=== PATIENT | female | born 1945 | race Caucasian/White ===

== ENCOUNTER → 2018-10-05 13:20 | Outpatient (CLI) | payer MEDICARE, SELFPAY ==
--- NOTE | 2018-10-05 13:30 | CT_ITS ---
CT abdomen pelvis wo con CLINICAL INDICATION: Right flank pain, history of renal stones, prior left nephrectomy ITS.REASON: kidney stones ORDERING PHYSICIAN: Erich Wilde MD PATIENT AGE: 73 years COMPARISON: 03/13/2015 TECHNIQUE: Axial images obtained with sagittal and coronal reformats. All CT scans at the facility use one or more dose reduction, viz: automated exposure control, ma/kV adjustment per patient size (including targeted exams where dose is matched to indication, i.e. head), or iterative reconstruction technique. PROCEDURE: Oral Contrast: None IV Contrast: None . FINDINGS: There are coronary artery calcifications. Lung bases are clear. Prior cholecystectomy. The liver, spleen, adrenal glands, and pancreas have an unremarkable unenhanced appearance. There has been a prior left nephrectomy. There is a hyperdense nodule along the posterior aspect of the right kidney which measures 14 x 9 mm not significant change. Nonobstructing punctate calculi are present in the lower pole the right kidney measuring up to 3 mm. No hydronephrosis. No ureteral calculi. No bladder calculi. No intestinal obstruction or free air. No evidence of appendicitis or diverticulitis. A moderate amount of retained colonic feces. There is diverticulosis of the sigmoid colon. Prior hysterectomy. Postsurgical changes lumbar spine. IMPRESSION: 1. Right nephrolithiasis. No ureteral calculi. 2. Stable hyperdense cyst of the upper pole the right kidney. 3. Prior left nephrectomy. 4. Other nonacute findings as described above
== END ==
PROVIDERS: PCP Family Medicine; Visit Provider Urology
DX: N20.0 Calculus of kidney (principal); R10.9 Unspecified abdominal pain
CPT/HCPCS: 74176

== ENCOUNTER → 2020-03-20 15:26 | Outpatient (CLI) | payer MEDICARE, SELFPAY ==
--- NOTE | 2020-03-20 16:17 | ECG_ITS ---
APPROVED REPORT Exam: Resting ECG HR:61 bpm ECG Measurements Heart Rate 61 AXES IN 168 P 42 QRSd 72 QRS 17 QT 396 T 40 QTc 398 <Conclusion> Normal sinus rhythm Normal ECG Electronically signed by : Elian Narvaez, 03/21/2020 07:17:04
== END ==
PROVIDERS: PCP Family Medicine; Visit Provider Family Medicine
DX: Z01.818 Encounter for other preprocedural examination (principal)
CPT/HCPCS: 93005

== ENCOUNTER → 2020-12-24 12:50 | Outpatient (CLI) | payer MEDICARE, SELFPAY ==
--- NOTE | 2020-12-24 12:54 | US_ITS ---
PROCEDURE: US THYROID CLINICAL INDICATION: THYROMEGALY COMPARISON: No exams were available for comparison FINDINGS: Right lobe: 3.9 x 1 x 0.8 centimeters Left lobe: 2.7 x 0.8 x 1.1 centimeters Isthmus: 0.2 centimeters Additional findings: The thyroid gland is normal in size. Heterogeneous echotexture of the thyroid gland is noted. Hypoechoic nodules are noted in both lobes of thyroid gland. The nodule on the left measures 1 x 0.5 centimeters with the hypoechogenicity. Well-defined margins are noted. The nodules largest nodule in the right lobe measures 1 x 0.5 centimeters. Vascularity appears within IMPRESSION: Normal limits. Heterogeneous thyroid gland with multiple bilateral thyroid nodules measuring up to 1 centimeter. Follow-up as clinically indicated. Dictated by: Raisa Patrick 12/24/2020 15:45 Raisa Patrick in [facility] 12/24/2020 15:45
== END ==
PROVIDERS: PCP Family Medicine; Visit Provider Family Medicine
DX: E01.0 Iodine-deficiency related diffuse (endemic) goiter (principal)
CPT/HCPCS: 76536

== ENCOUNTER → 2021-11-30 11:18 | Outpatient (CLI) | payer MEDICARE, SELFPAY ==
--- NOTE | 2021-11-30 11:31 | XR_ITS ---
PROCEDURE INFORMATION: Exam: XR Chest Exam date and time: 11/30/2021 11:32 AM Age: 76 years old Clinical indication: Cough and shortness of breath; Patient HX: Cough, SOA; Additional info: Bronchitis TECHNIQUE: Imaging protocol: XR of the chest. Views: 2 views. COMPARISON: ABDPELWO CT abdomen pelvis wo con 10/05/2018 1:37 PM FINDINGS: Tubes, catheters and devices: Surgical clips, RUQ. Lungs: Mild bibasilar linear atelectasis/fibrosis. No focal consolidation. Pleural spaces: Unremarkable. No pleural effusion. No pneumothorax. Heart/Mediastinum: Heart size considered at the upper limits of normal for size. Bones/joints: Scoliosis and osteoarthritic changes. Partially imaged lumbar arthrodesis. IMPRESSION: No acute process.
== END ==
PROVIDERS: PCP Physician Assistant; Referring Provider Physician Assistant; Visit Provider Physician Assistant
DX: J40 Bronchitis, not specified as acute or chronic (principal)
CPT/HCPCS: 71046

== ENCOUNTER → 2021-12-10 09:53 | Outpatient (CLI) | payer MEDICARE, SELFPAY ==
--- NOTE | 2021-12-10 | CA_ITS ---
APPROVED REPORT EXAM: Comprehensive 2D, Doppler, and color-flow Echocardiogram Human Service Worker: Katlin Green CRT Ht: 5 ft 1 in Wt: 155lbs BSA: 1.69 BP: 137/65 mmHg Indications: Shortness of Breath, Peripheral Edema, smoker 2D Dimensions LVOT 1.72 cm (M/F) 1.5-2.5 LA Volume 30.70 mL LA Volume Index 18.10 mL/m2 (M/F) 16-34 M-Mode Dimensions RVDd 2.58 cm (0.9-2.6) LA Diam 4.09 cm (1.9-4.0) LVDd 3.99 cm (3.5-5.7) Ao Diam 3.87 cm (2.0-3.7) LVDs 2.61 cm (3.5-5.7) IVSd 1.88 cm (0.6-1.1) PWd 0.64 cm (0.6-1.1) EF (Teich) 64.40% FS 34.60% EDV (Teich) 69.60 mL TAPSE 1.61 (<1.7) ESV (Teich) 24.80 mL LV Diastology E Decel Time 183.00 (160-240 msec) E/A Ratio 1.15 MED E' 8.50 (< 7 cm/sec) MED A' 10.80 cm/s E'/MED E' Ratio 7.92 (>14) LAT E' 6.90 (<10 cm/sec) LAT A' 5.60 cm/s E/LAT E' Ratio 9.75 (>14) Aortic Valve AO Peak GR. 5.80 mmHg Mitral Valve MV E Max Vamsi. 67.00 (40-130 cm/s) MV A Velocity 58.00 (40-130 cm/s) E/A Ratio 1.15 MV Decel. Time 183.00 (160-240 ms) MV PHT 54.00 ms Pulmonary Valve PV Peak Velocity 113.00 (50-150 cm/s) Tricuspid Valve TR P. Velocity 345.00 cm/s RAP Estimate 10.00 mmHg RVSP 57.70 mmHg Left Ventricle Left atrium is mildly enlarged, left ventricle is normal size, mild concentric left ventricular hypertrophy, estimated ejection fraction 55% with no regional wall motion abnormality, grade 2 diastolic dysfunction seen without tissue Doppler evidence of raise left atrial pressure. Right Ventricle Right atrium and right ventricle mildly enlarged with normal contractility. Aortic Valve Aortic valve is thickened and calcified without aortic stenosis or aortic insufficiency. Mitral Valve Mitral valve has mitral valve calcification which extends into the posterior mitral leaflet, there is no mitral stenosis, there is moderate mitral regurgitation. Tricuspid Valve Tricuspid valve grossly normal, there is mild tricuspid regurgitation, tricuspid regurgitation jet velocity is inadequate for calculation of the right ventricular systolic pressure. Pulmonic Valve Pulmonic valve is poorly visualized. Great Vessels Aortic root is normal size. Inferior vena cava is poorly visualized. Pericardium No significant pericardial effusion noted. Conclusion 1. Mild biatrial enlargement, normal left ventricular size, mild concentric left ventricular hypertrophy, estimated ejection fraction 55% with no regional wall motion abnormality, grade 2 diastolic dysfunction seen without tissue Doppler evidence of raise left atrial pressure. 2. Mildly enlarged right ventricle with normal contractility. 3. Moderate mitral and mild tricuspid regurgitation. 4. No significant pericardial effusion noted. 5. Inferior vena cava is poorly visualized. Electronically signed by : Emigdio Hopson MD 12/10/2021 20:51:58
== END ==
PROVIDERS: PCP Physician Assistant; Visit Provider Physician Assistant
DX: R06.02 Shortness of breath (principal); R94.31 Abnormal electrocardiogram [ECG] [EKG]
CPT/HCPCS: 93306

== ENCOUNTER → 2021-12-16 15:53 | Outpatient (CLI) | payer MEDICARE, SELFPAY ==
[2021-12-16 17:20] LABS: Alanine Aminotransferase 43 U/L (12-78); Albumin Level 3.8 g/dl (3.5-5.0); Alkaline Phosphatase 56 U/L (38-126); Anion Gap 7.4 mEq/L (5-15); Aspartate Amino Transferase 33 U/L (14-36); Bilirubin,Direct 0.2 mg/dl (0.0-0.4); Bilirubin,Indirect 0.4 mg/dL (0.0-0.9); Bilirubin,Total 0.6 mg/dl (0.2-1.3); Bilirubin,Unconjugated 0.4 mg/dL (0.0-1.1); Blood Urea Nitrogen 25 mg/dl (7-17); Calcium 8.7 mg/dl (8.4-10.2); Carbon Dioxide 38 mmol/L (22.0-30.0); Chloride 96 mmol/L (98-107); Chol/HDL Ratio 1.6 (1-3.5); Cholesterol 133 mg/dl (140-200); Estimated Glomerular Filt Rate 97 ml/min (>60); GFR (African American) 118 ML/MIN (>60); Glucose 125 mg/dl (74-100); HDL Cholesterol 83 mg/dl (40-60); Magnesium 1.6 mg/dl (1.6-2.3); Potassium 3.4 mmoL/L (3.5-5.1); Sodium 138 mmol/L (136-145); Total Protein,Serum 6.1 g/dl (6.3-8.2); Triglycerides 72 mg/dl (30-150); VLDL Cholesterol 14 mg/dL (0-40)
[2021-12-16 17:30] LABS: Direct LDL Cholesterol 42.19 mg/dL (100-129)
[2021-12-16 17:35] LABS: Free T4 (Free Thyroxine) 1.14 ng/dl (0.78-2.19)
[2021-12-16 17:50] LABS: Thyroid Stimulating Hormone 0.62 uIU/mL (0.465-4.68)
[2021-12-16 18:03] LABS: Basophils # 0.1 K/mm3 (0-0.2); Basophils % 0.7 % (0.1-2.0); Eosinophils % 0.1 % (0.1-12.0); Hematocrit 41.9 % (37.0-47.0); Lymphocytes % 7.8 % (10-50); Mean Corpuscular HGB Conc 33.5 g/dL (31.8-35.4); Mean Corpuscular Hemoglobin 33.1 pg (27.0-31.2); Mean Corpuscular Volume 98.9 fl (81-99); Mean Platelet Volume 8.7 fl (7.4-10.4); Monocytes # 0.9 K/mm3 (0.1-1.0); Monocytes % 6.9 % (1.7-9.3); Neutrophils # 11.4 K/mm3 (1.8-7.8); Neutrophils % 84.6 % (37.0-80.0); Platelet Count 225 K/mm3 (142-424); Red Blood Count 4.24 M/mm3 (4.20-5.40); Red Cell Distribution Width 14.7 % (11.5-17.5); White Blood Count 13.4 K/mm3 (4.8-10.8)
== END ==
PROVIDERS: Visit Provider Nurse Practitioner Family
DX: I10 Essential (primary) hypertension (principal); I34.0 Nonrheumatic mitral (valve) insufficiency; I51.89 Other ill-defined heart diseases
CPT/HCPCS: 80048; 80061; 80076; 83735; 84439; 84443; 85025

== ENCOUNTER 2021-12-18 13:01 | Inpatient (IN) | payer MEDICARE, SELFPAY ==
--- NOTE | 2021-12-18 13:12 | XR_ITS ---
FINAL REPORT CLINICAL HISTORY: possible pneumonia, shortness of breath COMPARISON: 11/30/2021 FINDINGS: TWO-VIEW CHEST The heart size is normal. The mediastinum is normal. There is worsening right base opacity, may represent atelectasis or pneumonia. There is worsening small right effusion. There is no pneumothorax. IMPRESSION: Worsening atelectasis or pneumonia with worsening right effusion. Reviewed, Interpreted and Dictated by Adan Lopez III, MD Transcribed by Rosa Crump Authenticated by Adan Lopez III, MD on 12/18/2021 04:55:01 PM [facility]
--- NOTE | 2021-12-18 13:31 | HMH.HP ---
*Admission Date: 12/18/21 <Nerissa Rutherford - 12/18/21 13:42> *Chief complaint: shortness of breath, leg edema <Nerissa Rutherford - 12/18/21 13:42> *History of present illness: Ms. Hurtado is a 76-year-old female with a history of hypertension, hyperlipidemia, hypothyroidism, impaired fasting glucose, anxiety and depression, and tobacco use. She has been seen multiple times in the office over the past few weeks. She initially had cough, congestion, and shortness of breath, which had been present for the past few months. She had also had some leg edema that seemed to be getting worse. Her white blood cell count was elevated and she has been treated with 3 different rounds of antibiotics for bronchitis. Her chest x-ray on 11/30/2021 showed no pneumonia. She had an elevated BNP and had an echocardiogram on 12/04/2021 showed grade 2 diastolic dysfunction. She was started on Lasix and spironolactone and continued to have swelling. An appointment was made for her with cardiology and she saw them on 12/16/2021. A stress test was scheduled and labs were done. The patient states the next day she felt so bad she went to the emergency room at [place]. A chest x-ray and an EKG were done. She says she was told she had pneumonia and was given IV Lasix and an IV antibiotic and sent home. Today she has been so weak she has been unable to get out of her chair. Her legs are continuing to swell despite diuretic therapy. She states she is not having significant urinary output. Of note she does only have 1 kidney. She will be admitted for CHF and failure of oral diuretics. Cardiology will be consulted. We will also get a chest x-ray to rule out pneumonia. <Nerissa Rutherford 12/18/21 13:42> [facility] History I have reviewed the patient's past medical history: Yes <Nerissa Rutherford 12/18/21 13:42> Medical History: Reports:: Anxiety, Depression, Hyperlipidemia, Hypertension, Kidney Stones, Migraine <Nerissa Rutherford 12/18/21 13:42> *Have you ever received a pneumonia vaccine?: Yes <Nerissa Rutherford 12/18/21 13:42> *Have you received a flu vaccine this season?: No <Nerissa Rutherford 12/18/21 13:42> Other Medical History: Reports: Anemia, Arthritis, Hypothyroidism, Other <Nerissa Rutherford 12/18/21 13:42> Laterality Cases: Bilateral: Cataract <Nerissa Rutherford 12/18/21 13:42> Other Surgeries: Yes: Cholecystectomy, Colonoscopy, Hysterectomy-Total, Ureter Stent, Other (nephrectomy left, lithotripsy, corneal repair, lithotripsy) <Nerissa Rutherford 12/18/21 13:42> Amputation: No <Nerissa Rutherford 12/18/21 13:42> - *Social History Smoking Status: Current every day smoker <Nerissa Rutherford 12/18/21 13:42> Tobacco Type: cigarettes <Nerissa Rutherford 12/18/21 13:42> # Packs/Day (cigarettes): 2 <Nerissa Rutherford 12/18/21 13:42> #Yrs smoked (if former smoker): 50 <Nerissa Rutherford 12/18/21 13:42> Alcohol Intake: never <Nerissa Rutherford 12/18/21 13:42> *Occupational Status:: employed <Nerissa Rutherford 12/18/21 13:42> *Travel in the last 8 weeks: None <Nerissa Rutherford 12/18/21 13:42> Family Hx:: Hypertension, Kidney Disease <Nerissa Rutherford 12/18/21 13:42> Review of Systems - Constitutional Reports fatigue, Reports weakness, Reports weight gain, Denies fever(s) <Nerissa Rutherford 12/18/21 13:42> - Eyes Denies blurry vision, Denies double vision <Nerissa Rutherford 12/18/21 13:42> - ENT Reports nasal congestion, Denies sore throat <Nerissa Rutherford 12/18/21 13:42> - *Cardiovascular Reports shortness of breath, Reports shortness of breath with activity, Reports leg swelling, Reports shortness of breath when lying down, Denies chest pain <Nerissa Rutherford 12/18/21 13:42> - *Respiratory Reports chest congestion, Reports cough, Reports shortness of breath <Nerissa Rutherford 12/18/21 13:42> - *Gastrointestinal Reports nausea, Denies abdominal pain, Denies loose stools, Denies vomiting <Nerissa Rutherford - 12/18/21 13:42> - *Genitourinary Denies difficulty urinating, Denies clem
[2021-12-18 13:41] VITALS: BP 155/96; PULSE 68; RESP 18; TEMP 37; O2SAT 98
[2021-12-18 13:58] VITALS: BMI 31.3
--- NOTE | 2021-12-18 14:01 | CT_ITS ---
FINAL REPORT CLINICAL HISTORY: One month of BRYANT, LE edema COMPARISON: 10/05/2018 FINDINGS: Thin section axial CT images of the chest were obtained with contrast. 3D reformatted images were also obtained. This study was performed with techniques to keep radiation doses as low as reasonably achievable (ALARA). Individualized dose reduction techniques using automated exposure control or adjustment of mA and/or kV according to the patient's size were employed. There is no evidence of pulmonary embolism. There is no evidence of thoracic aortic aneurysm or dissection. There is mediastinal adenopathy. Right subcarinal node measures 3.1 cm. There is a small right effusion. There is mild bibasilar atelectasis. There is a right lung base mass measuring 47 x 32 mm. Limited images of the upper abdomen reveal multiple new hepatic masses consistent with widespread hepatic metastatic disease. Largest mass in the left hepatic lobe measures 31 mm. There are small bilateral adrenal nodules, may represent adenomas versus metastases. Partially imaged posterior right renal mass is not a simple cyst. The left kidney is not seen, may be absent. The patient is status post cholecystectomy. IMPRESSION: No evidence of pulmonary embolism. New, widespread neoplastic involvement which may represent metastatic primary lung cancer or other neoplasm. Reviewed, Interpreted and Dictated by Adan Lopez III, MD Transcribed by Rosa Crump Authenticated by Adan Lopez III, MD on 12/18/2021 04:36:03 PM [facility]
--- NOTE | 2021-12-18 14:07 | HMH.CNCARD ---
History of Present Illness Consult date: 12/18/21 Requesting physician: Rizwan Burks Consult reason: shortness of breath Chief complaint: SOA, LE edema Additional Medical History:: 1. Hypertension A. Echocardiogram, 12/10/2021, mild biatrial enlargement, normal LV size, mild concentric LVH, EF 55% with no wall motion abnormality. Grade 2 diastolic dysfunction without evidence of raise left atrial pressure. Mild RVE with normal contractility. Moderate MR and mild TR. 2. Hyperlipidemia 3. Presumed COPD with [employer] continued tobacco use up to 2 packs/day over 60 years. 4. 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 Hypothyroidism with history of thyroid nodules, on supplementation 6. History of glucose intolerance 7. DNR patient request 8. History of spinal stenosis with lumbar spinal surgery 9. Anxiety/depression 10. Patient still mourning the of her in June 2021 ( for 57 years) History of present illness: Ms. Hurtado is a 76-year-old female with a history of hypertension, hyperlipidemia, hypothyroidism, impaired fasting glucose, anxiety and depression, and tobacco use. She has been seen multiple times in the office over the past few weeks. She initially had cough, congestion, and shortness of breath, which had been present for the past few months. She had also had some leg edema that seemed to be getting worse. Her white blood cell count was elevated and she has been treated with 3 different rounds of antibiotics for bronchitis. Her chest x-ray on 11/30/2021 showed no pneumonia. She had an elevated BNP and had an echocardiogram on 12/04/2021 showed grade 2 diastolic dysfunction. She was started on Lasix and spironolactone and continued to have swelling. An appointment was made for her with cardiology and she saw them on 12/16/2021. A stress test was scheduled and labs were done. The patient states the next day she felt so bad she went to the emergency room at [place]. A chest x-ray and an EKG were done. She says she was told she had pneumonia and was given IV Lasix and an IV antibiotic and sent home. Today she has been so weak she has been unable to get out of her chair. Her legs are continuing to swell despite diuretic therapy. She states she is not having significant urinary output. Of note she does only have 1 kidney. She will be admitted for CHF and failure of oral diuretics. Cardiology will be consulted. We will also get a chest x-ray to rule out pneumonia. The above per Nerissa Rutherford PA-C for Dr. Burks. The above events confirmed with the patient. She tends to focus on an episode 1 month ago when she was walking through [facility] when she became suddenly short of breath to the point that she had to stop several times getting out to her car. She had to have help with getting her purchases to her car. Since then she has gradually become limited in her ability with increasing lower extremity edema despite the addition of diuretics. Echocardiogram last week shows normal ejection fraction with grade 2 diastolic dysfunction and mild RV enlargement with moderate mitral regurgitation. Patient has had several CTs of her abdomen and pelvis through the years which show evidence of coronary artery calcifications. She denies any chest pain, pressure or tightness at this time. Patient was in ER at [facility] in [place] last evening with normal troponins x2 and an EKG that reportedly showed no acute ST segment changes. [facility] History Medical History: Reports:: Anxiety, Congestive Heart Failure, Depression, Diabetes Mellitus Type 2, Hyperlipidemia, Hypertension, Kidney Stones, Migraine Denies:: Cancer, Diabetes Mellitus Type 1, MRSA *Have you ever received a pneumonia vaccine?: Yes *Have you received a flu vaccine this season?: Yes Other Medical History: Reports: Anemia, Arthritis, Hypothyroidism, Thyroid Disease, Other Laterality Cases: Bilateral: Cataract Other
--- NOTE | 2021-12-18 14:23 | CA_ITS ---
FINAL REPORT CLINICAL HISTORY: SOA, LE edema,COPD, Smoker FINDINGS: Color Doppler, duplex Doppler and compression sonography of the bilateral lower extremities was performed. There is no evidence of deep venous thrombosis from the level of the groin to the calf. The deep veins are patent and compressible. IMPRESSION: No evidence of deep venous thrombosis bilateral lower extremities. Reviewed, Interpreted and Dictated by Adan Lopez III, MD Transcribed by Cyrus Gaxiola Authenticated by Adan Lopez III, MD on 12/19/2021 07:51:42 AM [facility]
--- NOTE | 2021-12-18 14:30 | ECG_ITS ---
APPROVED REPORT Exam: Resting ECG HR:60 bpm ECG Measurements Heart Rate 60 AXES MI 142 P 46 QRSd 76 QRS 24 QT 411 T 35 QTc 412 Conclusion SINUS RHYTHM Old anteroseptal changes ABNORMAL ECG UNCONFIRMED REPORT Electronically signed by : Dmitri Delgado MD 12/18/2021 17:55:06
--- NOTE | 2021-12-18 14:43 | P.CONPHA_ITS ---
[facility] Pharmacy VTE Monitoring - Patient Demographics Admission date: 12/18/21 Report Date: 12/18/21 Time: 14:43 Allergies/Adverse Reactions: Patient Allergies adhesive tape Allergy (Unknown, Verified 12/18/21 13:37) Redness of Skin latex Allergy (Unknown, Verified 12/18/21 13:37) Unknown allergy reaction minocycline Allergy (Unknown, Verified 12/18/21 13:37) Unknown allergy reaction venlafaxine Allergy (Unknown, Verified 12/18/21 13:37) Unknown allergy reaction Height: 1.57 m Weight: 77.734 kg Patient Problems: Current Active Problems Diastolic congestive heart failure (Acute) Impaired fasting glucose (Chronic) Hypothyroidism (Chronic) History of nephrectomy, left (Chronic) Kidney stones (Chronic) Migraines (Chronic) Tobacco use disorder, continuous (Acute) Edema of both lower extremities (Acute) Dyspnea (Acute) HTN (hypertension) (Chronic) HLD (hyperlipidemia) (Chronic) - VTE Risk VTE Score: 3 VTE Risk Level: Low Risk - Prophylaxis VTE Prophylaxis Ordered?: Yes Types of VTE Prophylaxis: TEDS Knee High Location of Applied Device: Bilateral Lower Extremeties
[2021-12-18 14:56] LABS: Coronavirus 19, PCR Not Detected (NotDetected); Influenza A, PCR Not Detected (NotDetected); Influenza B, PCR Not Detected (NotDetected)
[2021-12-18 15:03] LABS: NT Pro Brain Natriuretic Pep. 1120 pg/mL (0-450)
[2021-12-18 15:03] LABS: Chloride 100 mmol/L (98-107); Potassium 3.6 mmoL/L (3.5-5.1); Sodium 135 mmol/L (136-145)
[2021-12-18 15:05] LABS: Blood Urea Nitrogen 25 mg/dl (7-17); Creatinine Clearance Estimated 59 mL/min (50-200); Estimated Glomerular Filt Rate 97 ml/min (>60); GFR (African American) 118 ML/MIN (>60)
[2021-12-18 15:06] LABS: Alanine Aminotransferase 42 U/L (12-78); Albumin Level 3.4 g/dl (3.5-5.0); Albumin/Globulin Ratio 1.4 (1.1-1.8); Alkaline Phosphatase 49 U/L (38-126); Anion Gap 8.6 mEq/L (5-15); Aspartate Amino Transferase 49 U/L (14-36); Bilirubin,Total 0.7 mg/dl (0.2-1.3); Calcium 8.9 mg/dl (8.4-10.2); Carbon Dioxide 30 mmol/L (22.0-30.0); Globulin 2.5 g/dL (1.3-3.2); Glucose 146 mg/dl (74-100); Total Protein,Serum 5.9 g/dl (6.3-8.2)
[2021-12-18 15:08] LABS: Basophils # 0.1 K/mm3 (0-0.2); Basophils % 0.9 % (0.1-2.0); Eosinophils % 0.2 % (0.1-12.0); Hematocrit 41.9 % (37.0-47.0); Lymphocytes # 0.9 K/mm3 (0.7-4.5); Lymphocytes % 7.3 % (10-50); Mean Corpuscular HGB Conc 33.3 g/dL (31.8-35.4); Mean Corpuscular Hemoglobin 33.9 pg (27.0-31.2); Mean Corpuscular Volume 101.6 fl (81-99); Mean Platelet Volume 8.4 fl (7.4-10.4); Monocytes # 0.9 K/mm3 (0.1-1.0); Monocytes % 7.4 % (1.7-9.3); Neutrophils % 84.2 % (37.0-80.0); Platelet Count 186 K/mm3 (142-424); Red Blood Count 4.12 M/mm3 (4.20-5.40); Red Cell Distribution Width 14.6 % (11.5-17.5); White Blood Count 11.9 K/mm3 (4.8-10.8)
--- NOTE | 2021-12-18 15:25 | HMH.PHAINT ---
MEDICATION RECONCILIATION COMPLETED ON PATIENT USING EXTERNAL FILL HISTORY FROM PHARMACY, RONNIE REPORT, AND LISTS FROM [facility]/CARDIOLOGY. -VICTORINO MOHRD
[2021-12-18 16:00] VITALS: BP 195/89; PULSE 71; RESP 18; TEMP 36.5; O2SAT 98
[2021-12-18 18:31] LABS: Microscopic, Urine URINE MICROSCOPIC (MICROSCOPIC)
[2021-12-18 19:09] LABS: Appearance,Urine CLEAR (Clear); Bilirubin,Urine Negative (Negative); Blood, Urine 1+ (Negative); Color,Urine YELLOW (Yellow); Glucose,Urine (UA) Negative (Negative); Ketones,Urine Negative (Negative); Leukocyte Esterase,Urine Negative (Negative); Nitrate,Urine Negative (Negative); PH,Urine 7.5 (5.0-8.5); Protein,Urine TRACE (Negative); Urobilinogen,Urine 0.2 EU/dl (0.2)
[2021-12-18 19:55] LABS: Bacteria,Urine 1+ /lpf
--- NOTE | 2021-12-19 03:54 | PC.NURSE ---
Pt was restless t/o night. Pt stated she could not get comfortable to go sleep. Pt ambulates to the bathroom independently. Thus far in shift patient has had 2,150ml in output. Pitting edema in BLE. Pt voiced no c/o of nausea/vomiting t/o night.
[2021-12-19 05:00] VITALS: BMI 31.1
[2021-12-19 05:41] VITALS: BP 153/78; PULSE 71; RESP 14; TEMP 36.7; O2SAT 94
[2021-12-19 08:00] VITALS: BP 148/79; PULSE 74; RESP 15; TEMP 36.9; O2SAT 98
--- NOTE | 2021-12-19 08:41 | HMH.ACPN2 ---
<Nerissa Rutherford - Last Filed: 12/19/21 08:41> Internal Medicine - PN: Subj *Date: 12/19/21 *Time: 08:41 Interval history: Patient is in amazingly good spirits today. She states she did have difficulty sleeping last night because she was fidgety after learning the news that she has cancer. She continues to want only comfort and palliative care and does not wish to have any treatment. She does express desire to go to assisted living at [place] and possibly have hospice in the future. She states her shortness of breath has improved slightly with the Lasix but her leg swelling has only gotten worse. Exam Vital signs and Labs for Last 24 Hours: Temp Pulse Resp BP Pulse Ox 98.0 F 71 14 153/78 H 94 L 12/19/21 05:41 12/19/21 05:41 12/19/21 05:41 12/19/21 05:41 12/19/21 05:41 Laboratory Results - last 24 hr 12/18/21 13:52: NT-Pro-B Natriuret Pep 1120 H 12/18/21 14:00: Sodium 135 L, Potassium 3.6, Chloride 100, Carbon Dioxide 30, Anion Gap 8.6, BUN 25 H, Creatinine 0.60, Estimated Creat Clear 59, Estimated GFR 97, Est GFR ( Amer) 118, Glucose 146 H, Calcium 8.9, Total Bilirubin 0.7, AST 49 H D, ALT 42, Alkaline Phosphatase 49, Total Protein 5.9 L, Albumin 3.4 L, Globulin 2.5, Albumin/Globulin Ratio 1.4 12/18/21 14:25: SARS-CoV-2 (PCR) Not detected, Influenza A Untype (PCR) Not detected, Influenza Type B (PCR) Not detected 12/18/21 15:03: WBC 11.9 H, RBC 4.12 L, Hgb 14.0, Hct 41.9, MCV 101.6 H, MCH 33.9 H, MCHC 33.3, RDW 14.6, Plt Count 186, MPV 8.4, Neut % (Auto) 84.2 H, Lymph % (Auto) 7.3 L, Izard % (Auto) 7.4, Eos % (Auto) 0.2, Baso % (Auto) 0.9, Neut # (Auto) 10.0 H, Lymph # (Auto) 0.9, Izard # (Auto) 0.9, Eos # (Auto) 0.0, Baso # (Auto) 0.1 12/18/21 18:26: Urine Color Yellow, Urine Appearance Clear, Urine pH 7.5, Ur Specific [place] 1.010, Urine Protein Trace, Urine Glucose (UA) Negative, Urine Ketones Negative, Urine Blood 1+, Urine Nitrate Negative, Urine Bilirubin Negative, Urine Urobilinogen 0.2, Ur Leukocyte Esterase Negative, Urine RBC 5-10, Urine WBC 3-5, Ur Squamous Epith Cells 3-5, Urine Bacteria 1+ I & O for Last 24 hours: Intake & Output 12/16/21 12/17/21 12/18/21 12/19/21 11:59 11:59 11:59 11:59 Intake Total 120 / 120 Output Total 2750 / 2750 Balance -2630 / -2630 Weight 169 lb 8.568 oz - Constitutional no acute distress - *Routine Respiratory Exam Present: decreased breath sounds, CTA bilaterally - *Routine Cardiovascular Exam Present: RRR - *Routine Abdominal Exam Present: soft, normoactive bowel sounds. Absent: tenderness - *Routine Extremities Exam Present: edema (3+ lower extremity edema bilaterally). Absent: cyanosis, clubbing Assessment and Plan (1) Dyspnea Status: Acute Category: Medical Code(s): R06.00 - Dyspnea, unspecified (2) Diastolic congestive heart failure Status: Acute Category: Medical Code(s): I50.30 - Unspecified diastolic (congestive) heart failure (3) Edema of both lower extremities Status: Acute Category: Medical Code(s): R60.0 - Localized edema (4) HLD (hyperlipidemia) Status: Chronic Qualifiers: Hyperlipidemia type: mixed hyperlipidemia Qualified Code(s): E78.2 - Mixed hyperlipidemia Category: Medical Code(s): E78.5 - Hyperlipidemia, unspecified (5) HTN (hypertension) Status: Chronic Qualifiers: Hypertension type: primary hypertension Qualified Code(s): I10 - Essential (primary) hypertension Category: Medical Code(s): I10 - Essential (primary) hypertension (6) Impaired fasting glucose Status: Chronic Category: Medical Code(s): R73.01 - Impaired fasting glucose (7) Hypothyroidism Status: Chronic Category: Medical Code(s): E03.9 - Hypothyroidism, unspecified (8) History of nephrectomy, left Status: Chronic Category: Surgical Code(s): Z90.5 - Acquired absence of kidney (9) Kidney stones Status: Chronic Category: Medical Code(s): N20.0 - Calculus of kid
--- NOTE | 2021-12-19 10:38 | SW/DCPLANNER ---
Addendum entered by Kika Leos 12/20/21 09:37: This patient will discharge to [facility] today to Personal Care Unit. COVID swab will be collected today prior to discharge. Addendum entered by Kika Leos 12/19/21 15:10: [facility] stated that she can accept this patient on Personal Care Unit for tomorrow. Addendum entered by Kika [place] 12/19/21 11:20: [facility] is coming to speak with this patient about their Personal Care Unit. Original Note: Patient is interested in Assisted Living at time of discharge at [facility]. Patient information has been faxed to [facility]. I will follow up with [facility] once patient information is reviewed.
--- NOTE | 2021-12-19 12:15 | P.PN_ITS ---
Subjective Date: 12/19/21 Time: 12:15 Principal diagnosis: MAYUR NAVA edema Interval history: 76-year-old white female sitting in bedside chair no acute distress. She did receive IV Lasix last evening with 2 L of urine output but without significant change in her lower extremity edema. Breathing seems to be a little bit better today. Unfortunately the CTA of her chest showed evidence of multiple masses in her lungs, liver and possibly her solitary kidney. Patient has elected to proceed with palliative care. Patient's in June of last year after 57 years of marriage. She has been extremely heartbroken since then. She is not afraid of dying and is ready to go see her maker and her mate. Exam Vital signs and Labs for Last 24 Hours: Temp Pulse Resp BP Pulse Ox 98.5 F 74 15 148/79 H 98 12/19/21 08:00 12/19/21 08:00 12/19/21 08:00 12/19/21 08:00 12/19/21 08:00 Laboratory Results - last 24 hr 12/18/21 13:52: NT-Pro-B Natriuret Pep 1120 H 12/18/21 14:00: Sodium 135 L, Potassium 3.6, Chloride 100, Carbon Dioxide 30, Anion Gap 8.6, BUN 25 H, Creatinine 0.60, Estimated Creat Clear 59, Estimated GFR 97, Est GFR ( Amer) 118, Glucose 146 H, Calcium 8.9, Total Bilirubin 0.7, AST 49 H D, ALT 42, Alkaline Phosphatase 49, Total Protein 5.9 L, Albumin 3.4 L, Globulin 2.5, Albumin/Globulin Ratio 1.4 12/18/21 14:25: SARS-CoV-2 (PCR) Not detected, Influenza A Untype (PCR) Not detected, Influenza Type B (PCR) Not detected 12/18/21 15:03: WBC 11.9 H, RBC 4.12 L, Hgb 14.0, Hct 41.9, MCV 101.6 H, MCH 33.9 H, MCHC 33.3, RDW 14.6, Plt Count 186, MPV 8.4, Neut % (Auto) 84.2 H, Lymph % (Auto) 7.3 L, [place] % (Auto) 7.4, Eos % (Auto) 0.2, Baso % (Auto) 0.9, Neut # (Auto) 10.0 H, Lymph # (Auto) 0.9, [place] # (Auto) 0.9, Eos # (Auto) 0.0, Baso # (Auto) 0.1 12/18/21 18:26: Urine Color Yellow, Urine Appearance Clear, Urine pH 7.5, Ur Specific [place] 1.010, Urine Protein Trace, Urine Glucose (UA) Negative, Urine Ketones Negative, Urine Blood 1+, Urine Nitrate Negative, Urine Bilirubin Negative, Urine Urobilinogen 0.2, Ur Leukocyte Esterase Negative, Urine RBC 5- 10, Urine WBC 3-5, Ur Squamous Epith Cells 3-5, Urine Bacteria 1+ I & O for Last 24 hours: Intake & Output 12/17/21 12/18/21 12/19/21 12/20/21 11:59 11:59 11:59 11:59 Intake Total 360 / 360 Output Total 2750 / 2750 Balance -2390 / -2390 Weight 169 lb 8.568 oz - *Routine Respiratory Exam Present: CTA bilaterally - *Routine Cardiovascular Exam Present: RRR - *Routine Extremities Exam Present: edema. Absent: cyanosis, clubbing Progress Note: A&P (1) Dyspnea Status: Acute (2) Diastolic congestive heart failure Status: Acute (3) Edema of both lower extremities Status: Acute (4) HLD (hyperlipidemia) Status: Chronic (5) HTN (hypertension) Status: Chronic (6) Impaired fasting glucose Status: Chronic (7) Hypothyroidism Status: Chronic (8) History of nephrectomy, left Status: Chronic (9) Kidney stones Status: Chronic (10) Migraines Status: Chronic (11) Tobacco use disorder, continuous Status: Acute Assessment and Plan for All Diagnoses:: Nothing to add at this point. Please call if needed.
--- NOTE | 2021-12-19 13:57 | HMH.OTEV ---
OT Inpatient Evaluation Rehab OT IP Evaluation Start: 12/19/21 11:22 Freq: ONCE Status: Complete Protocol: Document 12/19/21 13:49 SHILPA (Rec: 12/19/21 13:56 SHILPA [id number]) Rehab OT IP Assessment Subjective History Ms. Hurtado is a 76-year-old female with a history of hypertension, hyperlipidemia, hypothyroidism, impaired fasting glucose, anxiety and depression, and tobacco use. She has been seen multiple times in the office over the past few weeks. She initially had cough, congestion, and shortness of breath, which had been present for the past few months. She had also had some leg edema that seemed to be getting worse. Her white blood cell count was elevated and she has been treated with 3 different rounds of antibiotics for bronchitis. Her chest x-ray on 11/30/2021 showed no pneumonia. She had an elevated BNP and had an echocardiogram on 12/04/2021 showed grade 2 diastolic dysfunction. She was started on Lasix and spironolactone and continued to have swelling . An appointment was made for her with cardiology and she saw them on 12/16/2021. A stress test was scheduled and labs were done. The patient states the next day she felt so bad she went to the emergency room at [place]. A chest x-ray and an EKG were done. She says she was told she had pneumonia and was given IV Lasix and an IV antibiotic and sent home. Today she has been so weak she has been unable to get out of her chair. Her legs are continuing to swell despite diuretic therapy. She states she is not having significa
--- NOTE | 2021-12-19 14:35 | HMH.PTEV ---
Physical Therapy Evaluation Rehab PT IP Evaluation Start: 12/19/21 11:22 Freq: ONCE Status: Active Protocol: Document 12/19/21 13:56 LANA (Rec: 12/19/21 14:00 LANA [id number]) Subjective/History History History THis is the initial IP PT eevaluation for Maureen Hurtado. Pt is a 76 y/o female admitted to [facility] for SOA and exacerbation of CHF. Unfortunately through testing pt has been diagnosed w/ metastatic cancer. Pt has elected to go to palliative care and assisted living. Subjective Subjective Pt is very pleasant and willing to participate w/ therapy. Pt did report some c /o SOA towards end of ambulation. Rehab PT IP Eval Objective Appearance Patient Behavior Appropriate,Cooperative Patient Orientation Place,Name,Age,Birthday,Year, Situation Difficulty following instructions none Speech Pattern Clear,Appropriate Ambulation Patient Able to Ambulate Yes Ambulation Observation IP General Gait Pattern Observation No Deviations/Normal Ambulation Distance (feet) 250 Ambulation Assistive Device None Ambulation Ability Supervision/Stand by,Contact Guard/Hand Hold Balance Ability to Arise Able, uses arms to help Sitting Balance Steady, safe Dynamic Sitting Balance Ability Normal Dynamic Standing Balance Ability Good Transfers Bed Transfer Ability Independent Chair Transfer Ability Independent Sit to Stand Bed Transfer Ability Supervision/Stand by Sit to Stand Chair Transfer Ability Supervision/Stand by Rehab PT IP prob,goals,plan Problems Date of Evaluation: 12/19/21 PT IP Problems Gait,Self care,Safety Rehab Potential Rehab Potential Good Equipment Needs Assistive Devices None / NA Plan PT Intervention Plan Gait,Self care,Safety, Therapeutic Exercise PT Plan Frequency BID Duration LOS Discharge Goals Bed Transfer Ability Independent Sit to Stand Chair Transfer Ability Supervision/Stand by Ambulation Assistive Device None Ambulation Distance (feet) 250 Discharge Plan PT Discharge Plan [place] [facility] [place] Pt will benefit from skill
--- NOTE | 2021-12-19 15:18 | PC.NURSE ---
PT IS SITTING UP ON THE SOB WITH FAMILY AT BEDSIDE. ALERT AND ORIENTED X4. PT STATES SHE IS OKAY WITH GOING TO [facility] AND SHE DID NOT WANT ANY INVASIVE PROCEDURES DONE SHE JUST WANTS TO BE COMFORTABLE. LUNG SOUNDS CLEAR. PT STATES HER SOA HAS IMPROVED. PT CONTINUES TO HAVE 3+ PITTING EDEMA IN BLE. PT HAS BEEN AMBULATING IN THE ROOM AND AMBULATED WITH PHYSICAL THERAPY IN THE HALLWAY. WILL CONTINUE TO MONITOR.
[2021-12-19 15:45] VITALS: BP 187/71; PULSE 77; RESP 16; TEMP 36.8; O2SAT 98
[2021-12-19 20:00] VITALS: PULSE 70; O2SAT 95
[2021-12-19 20:56] VITALS: BP 161/88; PULSE 67; RESP 18; TEMP 36.6; O2SAT 95
--- NOTE | 2021-12-20 04:14 | PC.NURSE ---
pt up to chair and ambulating in castillo with standby assist at beginning of shift, no complaints of pain or SOA, did report some anxiety and requested PRN medications before going to bed, has had 1300 mL of urine out so far this shift, 3+ pitting edema still present in BLE, remains on room air with O2 sats 95-96%
[2021-12-20 04:41] VITALS: BP 191/80; PULSE 79; RESP 18; TEMP 36.4; O2SAT 96
[2021-12-20 06:43] LABS: Basophils # 0.1 K/mm3 (0-0.2); Basophils % 0.6 % (0.1-2.0); Eosinophils % 0.2 % (0.1-12.0); Hematocrit 44.2 % (37.0-47.0); Lymphocytes # 0.7 K/mm3 (0.7-4.5); Lymphocytes % 7.1 % (10-50); Mean Corpuscular HGB Conc 33.9 g/dL (31.8-35.4); Mean Corpuscular Hemoglobin 33.4 pg (27.0-31.2); Mean Corpuscular Volume 98.3 fl (81-99); Mean Platelet Volume 7.9 fl (7.4-10.4); Monocytes # 0.8 K/mm3 (0.1-1.0); Monocytes % 7.6 % (1.7-9.3); Neutrophils # 8.9 K/mm3 (1.8-7.8); Neutrophils % 84.5 % (37.0-80.0); Platelet Count 200 K/mm3 (142-424); Red Cell Distribution Width 14.3 % (11.5-17.5); White Blood Count 10.5 K/mm3 (4.8-10.8)
[2021-12-20 07:04] LABS: Anion Gap 7.6 mEq/L (5-15); Blood Urea Nitrogen 20 mg/dl (7-17); Calcium 8.2 mg/dl (8.4-10.2); Carbon Dioxide 36 mmol/L (22.0-30.0); Chloride 96 mmol/L (98-107); Creatinine Clearance Estimated 56 mL/min (50-200); Estimated Glomerular Filt Rate 97 ml/min (>60); GFR (African American) 118 ML/MIN (>60); Glucose 141 mg/dl (74-100); Sodium 137 mmol/L (136-145)
[2021-12-20 07:06] LABS: Potassium 2.6 mmoL/L (3.5-5.1)
[2021-12-20 07:49] VITALS: BP 192/96; PULSE 87; RESP 17; TEMP 36.5; O2SAT 97
[2021-12-20 08:00] VITALS: O2SAT 96
--- NOTE | 2021-12-20 08:26 | HMH.ACPN2 ---
<Nerissa Rutherford - Last Filed: 12/20/21 08:26> Internal Medicine - PN: Subj *Date: 12/20/21 *Time: 08:26 Interval history: Patient states she is feeling well this morning. She states she was given diazepam last night and was able to rest. She denies any pain. Her legs are still swollen but she feels like her shortness of breath is improved and the swelling in her stomach is also improved with diuretics. Exam Vital signs and Labs for Last 24 Hours: Temp Pulse Resp BP Pulse Ox 97.7 F 87 17 192/96 H 97 12/20/21 07:49 12/20/21 07:49 12/20/21 07:49 12/20/21 07:49 12/20/21 07:49 Laboratory Results - last 24 hr 12/20/21 06:15: WBC 10.5, RBC 4.50, Hgb 15.0, Hct 44.2, MCV 98.3, MCH 33.4 H, MCHC 33.9, RDW 14.3, Plt Count 200, MPV 7.9, Neut % (Auto) 84.5 H, Lymph % (Auto) 7.1 L, [place] % (Auto) 7.6, Eos % (Auto) 0.2, Baso % (Auto) 0.6, Neut # (Auto) 8.9 H, Lymph # (Auto) 0.7, [place] # (Auto) 0.8, Eos # (Auto) 0.0, Baso # (Auto) 0.1 12/20/21 06:15: Sodium 137, Potassium 2.6 L* D, Chloride 96 L, Carbon Dioxide 36 H, Anion Gap 7.6, BUN 20 H, Creatinine 0.60, Estimated Creat Clear 56, Estimated GFR 97, Est GFR ( Amer) 118, Glucose 141 H, Calcium 8.2 L I & O for Last 24 hours: Intake & Output 12/17/21 12/18/21 12/19/21 12/20/21 11:59 11:59 11:59 11:59 Intake Total 360 / 360 840 / 840 Output Total 2750 / 2750 3000 / 3000 Balance -2390 / -2390 -2160 / -2160 Weight 169 lb 8.568 oz 163 lb 2.273 oz - Constitutional no acute distress - *Routine Respiratory Exam Present: CTA bilaterally - *Routine Cardiovascular Exam Present: RRR - *Routine Abdominal Exam Present: soft, normoactive bowel sounds. Absent: tenderness - *Routine Extremities Exam Present: edema (2-3+ edema bilateral lower extremities). Absent: cyanosis, clubbing - *Routine Skin Exam Present: warm. Absent: rash - *Routine Neurological Exam Present: alert, oriented X3 Assessment and Plan (1) Dyspnea Status: Acute Category: Medical Code(s): R06.00 - Dyspnea, unspecified (2) Diastolic congestive heart failure Status: Acute Category: Medical Code(s): I50.30 - Unspecified diastolic (congestive) heart failure (3) Edema of both lower extremities Status: Acute Category: Medical Code(s): R60.0 - Localized edema (4) HLD (hyperlipidemia) Status: Chronic Qualifiers: Hyperlipidemia type: mixed hyperlipidemia Qualified Code(s): E78.2 - Mixed hyperlipidemia Category: Medical Code(s): E78.5 - Hyperlipidemia, unspecified (5) HTN (hypertension) Status: Chronic Qualifiers: Hypertension type: primary hypertension Qualified Code(s): I10 - Essential (primary) hypertension Category: Medical Code(s): I10 - Essential (primary) hypertension (6) Impaired fasting glucose Status: Chronic Category: Medical Code(s): R73.01 - Impaired fasting glucose (7) Hypothyroidism Status: Chronic Category: Medical Code(s): E03.9 - Hypothyroidism, unspecified (8) History of nephrectomy, left Status: Chronic Category: Surgical Code(s): Z90.5 - Acquired absence of kidney (9) Kidney stones Status: Chronic Category: Medical Code(s): N20.0 - Calculus of kidney (10) Migraines Status: Chronic Category: Medical Code(s): G43.909 - Migraine, unspecified, not intractable, without status migrainosus (11) Tobacco use disorder, continuous Status: Acute Category: Medical Code(s): F17.209 - Nicotine dependence, unspecified, with unspecified nicotine-induced disorders - Assessment and plan all Dx Assessment and Plan for all problems:: White blood cell count has normalized. Potassium is low today and will need to be replaced. [place] [facility] [place] states she is ready to go today. She does request being discharged on some diazepam for anxiety as needed. Will discuss with Dr. Burks. <Rizwan Burks - Last Filed:
[2021-12-20 10:06] LABS: Coronavirus 19, PCR Not Detected (NotDetected); Influenza A, PCR Not Detected (NotDetected); Influenza B, PCR Not Detected (NotDetected)
--- NOTE | 2021-12-20 10:38 | HMH.DCSUM ---
General - General Admission date:: 12/18/21 Discharge date: 12/20/21 HPI HPI: Ms. Hurtado is a 76-year-old female with a history of hypertension, hyperlipidemia, hypothyroidism, impaired fasting glucose, anxiety and depression, and tobacco use. She has been seen multiple times in the office over the past few weeks. She initially had cough, congestion, and shortness of breath, which had been present for the past few months. She had also had some leg edema that seemed to be getting worse. Her white blood cell count was elevated and she has been treated with 3 different rounds of antibiotics for bronchitis. Her chest x-ray on 11/30/2021 showed no pneumonia. She had an elevated BNP and had an echocardiogram on 12/04/2021 showed grade 2 diastolic dysfunction. She was started on Lasix and spironolactone and continued to have swelling. An appointment was made for her with cardiology and she saw them on 12/16/2021. A stress test was scheduled and labs were done. The patient states the next day she felt so bad she went to the emergency room at [place]. A chest x-ray and an EKG were done. She says she was told she had pneumonia and was given IV Lasix and an IV antibiotic and sent home. Today she has been so weak she has been unable to get out of her chair. Her legs are continuing to swell despite diuretic therapy. She states she is not having significant urinary output. Of note she does only have 1 kidney. She will be admitted for CHF and failure of oral diuretics. Cardiology will be consulted. We will also get a chest x-ray to rule out pneumonia. Hospital Course Hospital Course: The patient was admitted and cardiology was consulted. They were concerned for a PE and ordered a CTA. The CTA showed no signs of PE, but it did show signs of a right-sided lung cancer with a pleural effusion and metastatic disease to the liver. Dr. Burks had a long discussion with the patient about the findings and she stated she did not want to see Heme/Onc and was not interested in a definitive diagnosis. He discussed palliative care with the patient and she was in agreement. She did have venous Dopplers due to lower extremity edema, and these were negative for DVT. It was felt the lung tumors were causing cor pulmonale, which is what was causing the swelling in her legs. Cardiology did not feel the leg swelling would improve, even with diuretics. The patient did have significant urinary output with Lasix and felt like her shortness of breath and abdominal swelling did improve. She expresses desire to go to assisted living at [place] once discharged from the hospital and possibly have hospice as well in the future. Rochelle from [place] accepted the patient on the personal care unit. By 12/20/2021 she continued to feel well other than her lower extremity edema. She had been given diazepam and it helped her rest. Her white blood cell count had normalized. Her potassium was low and was replaced. She was stable to be discharged to [place] personal-care/assisted living. She will be continued on diuretics and will need a CBC and BMP in 5 days. Objective Vital signs: Temp Pulse Resp BP Pulse Ox 97.7 F 87 17 192/96 H 97 12/20/21 07:49 12/20/21 07:49 12/20/21 07:49 12/20/21 07:49 12/20/21 07:49 Narrative: - Constitutional no acute distress <Nerissa Rutherford 12/18/21 13:42> - *Routine HEENT Exam Head: Present: normocephalic <Nerissa Rutherford 12/18/21 13:42> Eye: Present: EOMI, PERRL <Nerissa Rutherford 12/18/21 13:42> ENT: Present: mucous membranes moist <Nerissa Rutherford 12/18/21 13:42> - *Routine Neck Exam Present: supple. Absent: lymphadenopathy <Nerissa Rutherford 12/18/21 13:42> - *Routine Respiratory Exam Present: decreased breath sounds, CTA bilaterally <Nerissa Rutherford 12/18/21 13:42> - *Routine Cardiovascular Exam Present: RRR <Nerissa Rutherford 12/18/21 13:42> - *Routine Abdominal Exam Present: soft
== END 2021-12-20 12:49 | disposition home or self-care (01) | DRG 180 ==
PROVIDERS: Physician Assistant; Admitting Provider Family Medicine; PCP Family Medicine; Visit Provider Family Medicine
DX: C34.11 Malignant neoplasm of upper lobe, right bronchus or lung (principal); I50.31 Acute diastolic (congestive) heart failure; C78.7 Secondary malignant neoplasm of liver and intrahepatic bile duct; I11.0 Hypertensive heart disease with heart failure; E78.5 Hyperlipidemia, unspecified; M19.90 Unspecified osteoarthritis, unspecified site; F32.A Depression, unspecified; F41.9 Anxiety disorder, unspecified; F17.210 Nicotine dependence, cigarettes, uncomplicated; E03.9 Hypothyroidism, unspecified; Z87.442 Personal history of urinary calculi
CPT/HCPCS: 36415; 71046; 71275; 80048; 80053; 80061; 80076; 81001; 83735; 83880; 84439; 84443; 85025; 93005; 93970; 93976; 97110; 97116; 97161; 97165; C9803; U0003; U0005

== ENCOUNTER → 2021-12-28 14:06 | Outpatient (CLI) | payer MEDICARE, SELFPAY ==
[2021-12-28 17:47] LABS: Chloride 88 mmol/L (98-107); Sodium 134 mmol/L (136-145)
[2021-12-28 17:50] LABS: Anion Gap 12.5 mEq/L (5-15); Blood Urea Nitrogen 26 mg/dl (7-17); Calcium 9.8 mg/dl (8.4-10.2); Carbon Dioxide 36 mmol/L (22.0-30.0); Estimated Glomerular Filt Rate 70 ml/min (>60); GFR (African American) 84 ML/MIN (>60); Glucose 229 mg/dl (74-100)
[2021-12-28 18:00] LABS: Potassium 2.5 mmoL/L (3.5-5.1)
== END ==
PROVIDERS: PCP Family Medicine; Visit Provider Family Medicine
DX: E78.5 Hyperlipidemia, unspecified (principal); I10 Essential (primary) hypertension; R06.00 Dyspnea, unspecified; R42 Dizziness and giddiness; R53.83 Other fatigue; R60.0 Localized edema; R94.31 Abnormal electrocardiogram [ECG] [EKG]
CPT/HCPCS: 80048